=== PATIENT | male | born 1985 | race Caucasian/White ===

== ENCOUNTER 2020-09-14 22:45 | Observation (INO) | payer OTHER ==
[~2020-09-14] VITALS: Ht 167.6 cm; Wt 68.9 kg
[2020-09-14 23:07] LABS: HEMOGLOBIN 13.4 gm/dl (14.0-17.5); RED BLOOD COUNT 4.25 M/UL (4.20-5.50); WHITE BLOOD COUNT 8.8 K/UL (4.5-11.0)
[2020-09-14 23:26] LABS: BUN/CREATININE RATIO 19 (0-10)
[2020-09-15] MEDS ORDERED: BUPRENORPHIN-N1 EACH SL (02:13)
[2020-09-15] MEDS ORDERED: IBUPROFEN800 MG PO (10:29)
[2020-09-15] MEDS ORDERED: CYCLOBENZAPRINE10 MG PO (10:29)
[2020-09-15] MEDS ORDERED: TRAMADOL HCL50 MG PO (10:29)
== END 2020-09-15 12:50 | disposition home or self-care (01) ==
LOC: EDBD 22:45 → ER1 22:45 → CDU 09-15 00:30 → MED SURG 4 09-15 02:15
PROVIDERS: Emergency Medicine; ADMIT Surgery
DX: S22.42XA Multiple fractures of ribs, left side, initial encounter for closed fracture (principal); S81.811A Laceration without foreign body, right lower leg, initial encounter; S30.0XXA Contusion of lower back and pelvis, initial encounter; S27.321A Contusion of lung, unilateral, initial encounter; S27.0XXA Traumatic pneumothorax, initial encounter; Z20.822 Contact with and (suspected) exposure to COVID-19; Z79.899 Other long term (current) drug therapy; V09.9XXA Pedestrian injured in unspecified transport accident, initial encounter
CPT/HCPCS: 70450; 70486; 71045; 71260; 72125; 72128; 72131; 73080; 73562; 73590; 80053; 83605; 83690; 85025; 85610; 85730; 86850; 86900; 86901; 93005; 94760; 99285; G0378; G0480; J3010; Q9967; U0002